=== PATIENT | male | born 1955 | race Caucasian/White ===

== ENCOUNTER 2016-12-06 07:27 | Day surgery (SDC) | payer BC ==
[~2016-12-06] VITALS: Ht 190.5 cm; Wt 83.9 kg
--- NOTE | ~2016-12-06 | EGD ---
EGD REPORT [facility] [address] [place] [id number] NAME: TRINO DESHPANDE : [birth year] STATUS : REG [facility]#: [id number] AGE: 61 ADM/REG DATE : 12/06/16 MR#: [id number] REPORT SERV DATE: 12/06/16 DICTATED BY: ADIA COLEMAN DATE: 12/06/16 REPORT STATUS : Draft TRANSCRIBED BY: [facility] DATE: 12/06/16 Endoscopy Center Patient Name: Trino Deshpande Date of : 1955 Attending MD: ADIA COLEMAN MD Procedure Date No Time: 12/06/2016 Procedure: Colonoscopy Indications: High risk colon cancer surveillance: Personal history of colonic polyps Referring MD: TU PARADA Medicines: Monitored Anesthesia Care Complications: No immediate complications. Procedure: Pre-Anesthesia Assessment: - ASA Grade Assessment: III - A patient with severe systemic disease. After I obtained informed consent, the scope was passed under direct vision. Throughout the procedure, the patient's blood pressure, pulse, and oxygen saturations were monitored continuously. The CF [id number] was introduced through the anus and advanced to the cecum, identified by appendiceal orifice and ileocecal valve. The colonoscopy was performed with moderate difficulty due to significant looping. Successful completion of the procedure was aided by applying abdominal pressure. The patient tolerated the procedure well. The quality of the bowel preparation was good. Findings: The digital rectal exam was normal. Pertinent negatives include no palpable rectal lesions. Hemorrhoids were found during retroflexion and were mild. Impression: - Hemorrhoids. Recommendation: - Patient has a contact number available for emergencies. The signs and symptoms of potential delayed complications were discussed with the patient. Return to normal activities tomorrow. Written discharge instructions were provided to the patient. - Regular diet. - Continue present medications. - Resume ELIQUIS at prior dose today. Refer to managing physician for further adjustment of therapy. - Repeat colonoscopy in 5 years for surveillance. - Return to GI clinic PRN. EGD REPORT [facility] [address] [place] [id number] NAME: TRINO DESHPANDE : [birth year] STATUS : REG [facility]#: [id number] AGE: 61 ADM/REG DATE : 12/06/16 MR#: [id number] REPORT SERV DATE: 12/06/16 DICTATED BY: ADIA COLEMAN DATE: 12/06/16 REPORT STATUS : Draft TRANSCRIBED BY: [employer] DATE: 12/06/16 Procedure Code(s): --- Professional --- 04094, Colonoscopy, flexible, proximal to splenic flexure; diagnostic, with or without collection of specimen(s) by brushing or washing, with or without colon decompression (separate procedure) Diagnosis Code(s): --- Professional --- K64.9, Unspecified hemorrhoids Z86.010, Personal history of colonic polyps CPT copyright 2013 [employer]. All rights reserved. The codes documented in this report are preliminary and upon die maker stamping review may be revised to meet current compliance requirements. ADIA COLEMAN MD 12/06/2016 9:32 AM This report has been signed electronically. Number of Addenda: 0 Note Initiated On: 12/06/2016 9:09 AM Scope Withdrawal Time 0 hours 6 minutes 38 seconds [id number] [place] [id number]
[~2016-12-06 07:27] MED LIST: COREG12 PO; CRESTOR20 MG PO; ELIQUIS 5 MG TAB5 MG PO
== END 2016-12-06 23:59 | disposition home or self-care (01) ==
LOC: DMU 07:27
PROVIDERS: Internal Medicine Gastroenterology
PROC: 0DJD8ZZ Inspection of Lower Intestinal Tract, Via Natural or Artificial Opening Endoscopic (ICD-10-PCS; principal; 2016-12-06 09:00)
DX: Z12.11 Encounter for screening for malignant neoplasm of colon (principal); K64.9 Unspecified hemorrhoids; I48.91 Unspecified atrial fibrillation; Z86.010 Personal history of colon polyps; Z98.890 Other specified postprocedural states